=== PATIENT | female | born 1985 | race Caucasian/White ===

== ENCOUNTER 2017-12-15 19:55 | Outpatient (CLI) | payer MEDICAID, OTHER ==
[2017-12-16 00:56] LABS: ADD UMIC YES; UR AMORPHOUS CRYSTAL FEW /HPF (NONE SEEN); UR ASCORBIC ACID NEGATIVE (NEGATIVE); UR BACTERIA FEW /HPF (NONE SEEN); UR BILIRUBIN (Dip) NEGATIVE (NEGATIVE); UR BLOOD (Dip) 2+ mg/dL (NEGATIVE); UR CLARITY CLOUDY (CLEAR); UR COLOR YELLOW (YELLOW); UR GLUCOSE (Dip) NEGATIVE (NEGATIVE); UR KETONES (Dip) NEGATIVE (NEGATIVE); UR LEUKOCYTE ESTERASE (Dip) 3+ Leu/ul (NEGATIVE); UR NITRITE (Dip) NEGATIVE (NEGATIVE); UR RBC 2 /HPF (0-5); UR SPECIFIC GRAVITY (Dip) 1.013 (1.003-1.030); UR SQUAMOUS EPITHELIAL CELL FEW /HPF (FEW); UR TOTAL PROTEIN (Dip) NEGATIVE (NEGATIVE); UR UROBILINOGEN (Dip) NEGATIVE (NEGATIVE); UR WBC 5 /HPF (0-5)
== END 2017-12-16 02:30 | disposition home or self-care (01) ==
LOC: OBT 19:55 → L-D 19:58
DX: O62.9 Abnormality of forces of labor, unspecified (principal); O23.43 Unspecified infection of urinary tract in pregnancy, third trimester; Z3A.32 32 weeks gestation of pregnancy
CPT/HCPCS: 76817; 76818; 81001; 86850; 86900; 86901

== ENCOUNTER 2018-01-18 09:22 | Inpatient (IN) | payer MEDICAID ==
[2018-01-18] MEDS ORDERED: OXYTOCIN 30 UNITS/LR 500 ML IV ×3 (13:30→21:00)
[2018-01-18] MEDS ORDERED: CARBOPROST 250 MCG INJ IM ×2 (13:30→21:00)
[2018-01-18] MEDS ORDERED: MISOPROSTOL 200 MCG TAB PR ×2 (13:30→21:00)
[2018-01-18] MEDS ORDERED: METHYLERGONOVINE 0.2 MG INJ IM ×2 (13:30→21:00)
[2018-01-18] MEDS: LACTATED RINGER'S 1,000 ML IV (13:56)
[2018-01-18] MEDS ORDERED: CEFAZOLIN 2 GM/50 ML (PMX) 50 ML IVPB (14:00)
[2018-01-18 14:16] LABS: ADD MAN DIFF? NO; BASOPHILS % 0.3 % (0.0-2.0); EOSINOPHILS % 0.4 % (0.0-7.0); HEMATOCRIT 38.5 % (37.0-47.0); HEMOGLOBIN 13.4 g/dl (12.0-16.0); LYMPHOCYTES # 2.8 10^3/ul (0.8-2.9); MEAN CORPUSCULAR HEMOGLOBIN 31.8 pg (29.0-33.0); MEAN CORPUSCULAR HGB CONC 34.8 g/dl (32.0-37.0); MEAN CORPUSCULAR VOLUME 91.4 fl (82.0-101.0); MEAN PLATELET VOLUME 10.2 fl (7.4-10.4); MONOCYTE # 0.7 10^3/ul (0.3-0.9); MONOCYTES % 9.6 % (0.0-11.0); NEUTROPHIL # 3.6 10^3/ul (1.6-7.5); NEUTROPHILS % 50.4 % (39.0-77.0); PLATELET COUNT 269 10^3/UL (140-415); RED BLOOD COUNT 4.21 10^6/ul (4.20-5.40); RED CELL DISTRIBUTION WIDTH 13.1 % (11.5-14.5)
[2018-01-18 14:16] LABS: WHITE BLOOD COUNT 7.1 10^3/ul (4.8-10.8)
[2018-01-18 14:42] LABS: INR 0.93; PROTIME 12.5 Sec (11.9-14.9)
[2018-01-18 14:43] LABS: PARTIAL THROMBOPLASTIN TIME 30.9 Sec (25.0-35.0)
[2018-01-18 15:05] LABS: RAPID PLASMA REAGIN NONREACTIVE (NR)
[2018-01-18] MEDS ORDERED: METOCLOPRAMIDE 10 MG INJ (17:05)
[2018-01-18] MEDS ORDERED: morphine SULFATE/PF (10 MG/10 ML) INJ (17:05)
[2018-01-18] MEDS ORDERED: OXYTOCIN 10 UNIT INJ ×2 (17:05→17:46)
[2018-01-18] MEDS ORDERED: EPHEDrine SULFATE 50 MG/5 ML SYG (17:05)
[2018-01-18] MEDS ORDERED: ONDANSETRON 4 MG INJ (17:05)
[2018-01-18] MEDS ORDERED: BUPIVACAINE 0.75%/DEXT (SPINAL) 2 ML INJ (17:06)
[2018-01-18] MEDS ORDERED: MIDAZOLAM 1 MG/ML 2 ML INJ ×2 (17:57→18:18)
[2018-01-18] MEDS ORDERED: DIPHENHYDRAMINE 50 MG INJ IV (21:00)
[2018-01-18] MEDS ORDERED: ONDANSETRON 4 MG INJ IV (21:00)
[2018-01-18] MEDS ORDERED: NALOXONE (0.4 MG/ML) INJ IV (21:00)
[2018-01-18] MEDS ORDERED: morphine SULFATE/PF (10 MG/10 ML) INJ SPINAL (21:00)
[2018-01-18] MEDS: SENNA/DOCUSATE NA (8.6MG/50MG) TAB PO (21:00)
[2018-01-18] MEDS ORDERED: morphine 2 MG INJ IV ×2 (21:00)
[2018-01-18] MEDS ORDERED: EPHEDrine SULFATE 50 MG/5 ML SYG IV (21:00)
[2018-01-18] MEDS ORDERED: OXYCODONE/ACETAMINOPHEN (5/325) TAB PO ×2 (21:00)
[2018-01-18] MEDS: CEFAZOLIN 1 GM/50 ML (PMX) 50 ML IVPB (21:14)
[2018-01-18] MEDS: OXYTOCIN 30 UNITS/LR 500 ML IV (21:15)
[2018-01-18] MEDS: KETOROLAC 30 MG INJ IV (21:16)
[2018-01-19] MEDS: OXYTOCIN 30 UNITS/LR 500 ML IV ×6 (00:39→20:39)
[2018-01-19] MEDS: SENNA/DOCUSATE NA (8.6MG/50MG) TAB PO ×2 (08:26→21:21)
[2018-01-19] MEDS: KETOROLAC 30 MG INJ IV ×2 (08:26→16:06)
[2018-01-19 09:19] LABS: ADD MAN DIFF? NO
[2018-01-19 09:23] LABS: WHITE BLOOD COUNT 7.9 10^3/ul (4.8-10.8)
[2018-01-19 09:23] LABS: BASOPHILS % 0.4 % (0.0-2.0); EOSINOPHILS % 0.5 % (0.0-7.0); HEMATOCRIT 33.5 % (37.0-47.0); HEMOGLOBIN 11.5 g/dl (12.0-16.0); LYMPHOCYTES # 1.6 10^3/ul (0.8-2.9); MEAN CORPUSCULAR HEMOGLOBIN 31.7 pg (29.0-33.0); MEAN CORPUSCULAR HGB CONC 34.3 g/dl (32.0-37.0); MEAN CORPUSCULAR VOLUME 92.3 fl (82.0-101.0); MEAN PLATELET VOLUME 10.3 fl (7.4-10.4); MONOCYTE # 0.8 10^3/ul (0.3-0.9); MONOCYTES % 10.4 % (0.0-11.0); NEUTROPHIL # 5.4 10^3/ul (1.6-7.5); NEUTROPHILS % 68.3 % (39.0-77.0); PLATELET COUNT 236 10^3/UL (140-415); RED BLOOD COUNT 3.63 10^6/ul (4.20-5.40)
[2018-01-19] MEDS: LANOLIN 7 GM TUBE TOP (15:50)
[2018-01-19] MEDS: HYDROCODONE/APAP (5/325) TAB PO (21:22)
[2018-01-19] MEDS: IBUPROFEN 600 MG TAB PO (23:55)
[2018-01-20] MEDS: OXYTOCIN 30 UNITS/LR 500 ML IV ×3 (00:39→08:39)
[2018-01-20] MEDS: IBUPROFEN 600 MG TAB PO ×3 (05:26→17:36)
[2018-01-20] MEDS: SENNA/DOCUSATE NA (8.6MG/50MG) TAB PO ×2 (08:46→21:00)
[2018-01-21] MEDS: HYDROCODONE/APAP (5/325) TAB PO ×2 (03:55→09:08)
[2018-01-21] MEDS: IBUPROFEN 600 MG TAB PO ×3 (05:51→12:35)
[2018-01-21] MEDS: SENNA/DOCUSATE NA (8.6MG/50MG) TAB PO (09:00)
[2018-01-21] MEDS: DIPHTH/TET/ACEL PERTUSS (ADULT) 0.5 ML VIAL IM* (12:26)
== END 2018-01-21 13:10 | disposition home or self-care (01) | DRG 766 ==
LOC: OBT 09:22 → L-D 09:22 → OBT 13:10 → L-D 13:10 → PP1 22:18
PROVIDERS: Obstetrics & Gynecology
PROC: 10D00Z1 Extraction of Products of Conception, Low, Open Approach (ICD-10-PCS; principal; 2018-01-18)
PROC: 0UB70ZZ Excision of Bilateral Fallopian Tubes, Open Approach (ICD-10-PCS; 2018-01-18)
DX: O34.211 Maternal care for low transverse scar from previous cesarean delivery (principal); Z3A.37 37 weeks gestation of pregnancy; Z37.0 Single live birth; O32.1XX0 Maternal care for breech presentation, not applicable or unspecified; Z30.2 Encounter for sterilization
CPT/HCPCS: 85025; 85610; 85730; 86592; 86850; 86900; 86901; 88302; 90715; 99464